=== PATIENT | male | born 1935 | race Caucasian/White ===

== ENCOUNTER 2017-07-10 18:43 | Emergency (ER) | payer MEDICARE, OTHER ==
[~2017-07-10] VITALS: Ht 177.8 cm; Wt 72.1 kg
[2017-07-10 19:21] LABS: BASOPHILS ABSOLUTE AUTO 0.02 K/mm3 (0.00-0.23); BASOPHILS PERCENT AUTO 0 % (0-2); EOSINOPHILS ABSOLUTE AUTO 0.03 K/mm3 (0.00-0.68); EOSINOPHILS PERCENT AUTO 0 % (0-6); Hemoglobin 11.2 g/dL (13.5-17.5); IMMATURE GRAN ABSOLUTE AUTO 0.04 K/mm3 (0.00-0.10); IMMATURE GRAN PERCENT AUTO 0 % (0-1); LYMPHOCYTES ABSOLUTE AUTO 0.78 K/mm3 (0.84-5.20); LYMPHOCYTES PERCENT AUTO 9 % (21-46); MONOCYTES ABSOLUTE AUTO 1.14 K/mm3 (0.16-1.47); MONOCYTES PERCENT AUTO 13 % (4-13); Mean Corpuscular HGB 31.6 pg (26.0-34.0); Mean Corpuscular Volume 99 fL (80-100); Mean Platelet Volume 9.3 fL (9.1-12.4); NEUTROPHILS ABSOLUTE AUTO 7.04 K/mm3 (1.96-9.15); NEUTROPHILS PERCENT AUTO 78 % (41-73); Platelet Count 382 K/mm3 (150-400); RDW Coefficient Variation 12.6 % (11.7-14.2); RDW Standard Deviation 45.5 fL (35.1-46.3); Red Blood Cell Count 3.54 M/mm3 (4.30-5.90); White Blood Cell Count 9.05 K/mm3 (4.00-11.30)
[2017-07-10 19:39] LABS: Alanine Aminotransfer (ALT/SGP 36 U/L (12-78); Albumin, Blood 2.2 g/dL (3.4-5.0); Albumin/Globulin Ratio 0.5 (0.8-1.8); Alk Phos 122 U/L (50-136); Anion Gap 8 mmol/L (6-16); Aspartate Aminotrans (AST/SGOT 37 U/L (12-37); Bilirubin, Total 0.4 mg/dL (0.1-1.0); Blood Urea Nitrogen 17 mg/dL (8-24); Bun/Creatinine Ratio 13.8 (12.0-20.0); CO2, Blood 27 mmol/L (21-32); Calcium, Blood 8.6 mg/dL (8.5-10.1); Chloride, Blood 104 mmol/L (98-108); Creatinine, Blood 1.23 mg/dL (0.60-1.20); Globulin, Blood 4.6 g/dL (2.2-4.0); Glomerular Filtration Rate >60 (60-); Glucose, Blood 108 mg/dL (70-99); Potassium, Blood 3.5 mmol/L (3.5-5.5); Sodium, Blood 139 mmol/L (136-145); Total Protein, Blood 6.8 g/dL (6.4-8.2)
[2017-07-10] MEDS ORDERED: IRON (20:03)
[2017-07-10] MEDS ORDERED: DIGOX125 MCG PO (20:04)
[2017-07-10] MEDS ORDERED: FURO40 PO (20:05)
[2017-07-10] MEDS ORDERED: ASPI81CH PO (20:05)
[2017-07-10] MEDS ORDERED: [UNRECOGNIZED DRUG - REMARK] (20:06)
[2017-07-10] MEDS ORDERED: Glucosamine Ch1 EAC4 PO (20:07)
[2017-07-10] MEDS ORDERED: Hair, Skin & N1 EACH PO (20:07)
[2017-07-10] MEDS ORDERED: [UNRECOGNIZED DRUG - OTHER] (20:07)
[2017-07-10] MEDS ORDERED: Ferosul325 MG PO (20:08)
[2017-07-10] MEDS ORDERED: Vitamin B-121000 MCG (20:09)
[2017-07-10] MEDS ORDERED: Advair Hfa 230-12 GM (20:09)
[2017-07-10 20:58] LABS: Source, Urine Clean Catch
[2017-07-10 20:59] LABS: Bicarbonate Venous 24.7 mmol/L (24.0-30.0); PCO2 Venous 54.9 mmHg (38-42); PO2 Venous 28.8 mmHg (38-42); pH Blood Venous 7.32 (7.34-7.37)
[2017-07-10 21:02] LABS: Appearance, Urine Clear (Clear); Bilirubin, Urine Neg (Neg); Blood, Urine 1+ (Neg); Color, Urine Yellow (P-Yellow); Glucose Qualitative, Urine Neg (Neg); Ketones, Urine Neg (Neg); Leukocyte Esterase, Urine Neg (Neg); Nitrite, Urine Neg (Neg); Protein, Urine 3+ (Neg); Urobilinogen, Urine 1+ (Normal)
[2017-07-10 21:10] LABS: Bacteria Not Seen /hpf; Red Blood Cells, Urine 0-2 /hpf (0-2); Squamous Epithelial Cells Rare /hpf (Few); White Blood Cells, Urine Not Seen /hpf (0-5)
[2017-07-10 22:17] LABS: PCO2 Arterial 38.1 mmHg (35-45); PO2 Arterial 65.5 mmHg (80-100)
[2017-07-10 22:21] LABS: Influenza A Negative (NEGATIVE); Influenza B Negative (NEGATIVE)
[2017-07-10] MEDS ORDERED: Zithromax250 MG PO (22:43)
[2017-07-10 23:18] LABS: Digoxin (Lanoxin) 0.43 ug/mL (0.80-2.00)
== END 2017-07-10 23:18 | disposition home or self-care (01) ==
LOC: ER 18:43
PROVIDERS: Emergency Medicine; Physician Assistant
DX: J18.9 Pneumonia, unspecified organism (principal); I48.91 Unspecified atrial fibrillation; Z79.82 Long term (current) use of aspirin; Z79.899 Other long term (current) drug therapy; F17.210 Nicotine dependence, cigarettes, uncomplicated
CPT/HCPCS: 36415; 36600; 70450; 71046; 80053; 80162; 81001; 82803; 83880; 84484; 85025; 87086; 87804; 93005; 93010; 99284; J7030

== ENCOUNTER → 2018-10-08 | Outpatient (CLI) | payer MEDICARE, OTHER ==
[~2018-10-08] MED LIST: ASPI81CH PO; Advair Hfa 230-12 GM; DIGOX125 MCG PO; FURO40 PO; Ferosul325 MG PO; Glucosamine Ch1 EAC4 PO; Hair, Skin & N1 EACH PO; IRON; Vitamin B-121000 MCG; Zithromax250 MG PO; [UNRECOGNIZED DRUG - OTHER]; [UNRECOGNIZED DRUG - REMARK]
== END | disposition home or self-care (01) ==
LOC: LAB SHORT 18:23 → LAB 18:23
DX: L03.90 Cellulitis, unspecified (principal)
CPT/HCPCS: 87070; 87075; 87077; 87186; 87205

== ENCOUNTER → 2018-10-13 | Outpatient (CLI) | payer MEDICARE, OTHER | END | disposition home or self-care (01) | LOC: LAB 12:30 → LAB SHORT 12:30 | DX: L03.317 Cellulitis of buttock (principal) | CPT/HCPCS: 87070; 87075; 87077; 87186; 87205 ==

== ENCOUNTER → 2019-05-12 | Outpatient (CLI) | payer MEDICARE, OTHER ==
[2019-05-13 14:29] LABS: Stool Occult Bld Immuno 1 Positive (NEGATIVE)
== END | disposition home or self-care (01) ==
LOC: LAB 15:30 → LAB SHORT 15:30 → LAB FUT 05-11 14:40
PROVIDERS: Nurse Practitioner Family
DX: Z12.11 Encounter for screening for malignant neoplasm of colon (principal)
CPT/HCPCS: G0328

== ENCOUNTER 2022-03-16 14:56 | Emergency (ER) | payer MEDICARE, OTHER ==
[~2022-03-16] VITALS: Ht 172.7 cm; Wt 62.6 kg
[2022-03-16] MEDS ORDERED: ELIQUIS2.5 M1 PO (17:52)
[2022-03-16] MEDS ORDERED: Norco 5-325 Ta1 EACH PO (18:19)
== END 2022-03-16 18:30 | disposition home or self-care (01) ==
LOC: ER 14:56
DX: M25.551 Pain in right hip (principal); M25.552 Pain in left hip; F17.210 Nicotine dependence, cigarettes, uncomplicated; Z79.82 Long term (current) use of aspirin; Z79.899 Other long term (current) drug therapy
CPT/HCPCS: 73502

== ENCOUNTER 2022-06-01 20:52 | Observation (INO) | payer MEDICARE, OTHER ==
[~2022-06-01 20:52] MED LIST changes: +DIGOX125 MC1 PO; -DIGOX125 MCG PO; +ELIQUIS2.5 M1 PO; +FURO20 PO; -FURO40 PO; +GLUCOSAMINE-CH1 EAC7 PO; -Glucosamine Ch1 EAC4 PO; +Norco 5-325 Ta1 EACH PO
[2022-06-01 21:09] LABS: BASOPHILS ABSOLUTE AUTO 0.03 K/mm3 (0.00-0.23); BASOPHILS PERCENT AUTO 1 % (0-2); EOSINOPHILS ABSOLUTE AUTO 0.01 K/mm3 (0.00-0.68); EOSINOPHILS PERCENT AUTO 0 % (0-6); Hemoglobin 7.1 g/dL (13.5-17.5); IMMATURE GRAN ABSOLUTE AUTO 0.02 K/mm3 (0.00-0.10); IMMATURE GRAN PERCENT AUTO 0 % (0-1); LYMPHOCYTES ABSOLUTE AUTO 0.91 K/mm3 (0.84-5.20); LYMPHOCYTES PERCENT AUTO 15 % (21-46); MONOCYTES PERCENT AUTO 8 % (4-13); Mean Corpuscular HGB 27.8 pg (26.0-34.0); Mean Corpuscular HGB Conc 29.6 g/dL (31.5-36.5); Mean Corpuscular Volume 94 fL (80-100); Mean Platelet Volume 8.6 fL (9.1-12.4); NEUTROPHILS ABSOLUTE AUTO 4.76 K/mm3 (1.96-9.15); NEUTROPHILS PERCENT AUTO 76 % (41-73); Platelet Count 487 K/mm3 (150-400); RDW Coefficient Variation 17.2 % (11.7-14.2); RDW Standard Deviation 59.7 fL (35.1-46.3); Red Blood Cell Count 2.55 M/mm3 (4.30-5.90); White Blood Cell Count 6.23 K/mm3 (4.00-11.30)
[2022-06-01 21:41] LABS: Alanine Aminotransfer (ALT/SGP 14 U/L (12-78); Albumin, Blood 2.1 g/dL (3.4-5.0); Albumin/Globulin Ratio 0.4 (0.8-1.8); Alk Phos 171 U/L (50-136); Anion Gap 4 mmol/L (6-16); Aspartate Aminotrans (AST/SGOT 20 U/L (12-37); Bilirubin, Total 0.3 mg/dL (0.1-1.0); Blood Urea Nitrogen 17 mg/dL (8-24); Bun/Creatinine Ratio 18.7 (12.0-20.0); CO2, Blood 29 mmol/L (21-32); Calcium, Blood 10.4 mg/dL (8.5-10.1); Chloride, Blood 106 mmol/L (98-108); Creatinine, Blood 0.91 mg/dL (0.60-1.20); Globulin, Blood 4.7 g/dL (2.2-4.0); Glomerular Filtration Rate 83 (60-); Glucose, Blood 101 mg/dL (70-99); Sodium, Blood 139 mmol/L (136-145); Total Protein, Blood 6.8 g/dL (6.4-8.2)
[2022-06-02 05:02] LABS: Source, Urine Straight Cath
[2022-06-02 05:16] LABS: Bilirubin, Urine Neg (Neg); Blood, Urine Neg (Neg); Glucose Qualitative, Urine Neg (Neg); Ketones, Urine Neg (Neg); Leukocyte Esterase, Urine Neg (Neg); Nitrite, Urine Neg (Neg); Protein, Urine 2+ (Neg); Urobilinogen, Urine NORM (Normal)
[2022-06-02 05:21] LABS: Appearance, Urine Clear (Clear); Color, Urine Yellow (P-Yellow)
[2022-06-02 05:22] LABS: Bacteria Not Seen /hpf; Red Blood Cells, Urine Not Seen /hpf (0-2); Squamous Epithelial Cells Not Seen /hpf (Few); White Blood Cells, Urine 0-2 /hpf (0-5)
--- NOTE | 2022-06-02 13:28 | NUR ---
Upon returning to office from PCU, received VM left earlier today regarding pt in ED. Pt's family has just arrived, and are wanting to discuss options, possibly hospice. I called primary RN Richard, let him know I'm now free to assist, and will meet with pt and family after a quick review of pt's chart.
--- NOTE | 2022-06-02 14:32 | NUR ---
Met with pt, along with his s/o Hazel and son Nemesio. Pt was diagnosed with metastatic lung cancer on 05/22/22. He was prescribed 12mcg Fentanyl patches for related pain, but per , has not utilized the medication out of fear of "fentanyl overdose", as states they hear about frequently on the news. Pt appears frail, cachectic, and notably confused. He is pleasant. C/O bilat arms, shoulders, hip and leg pain, and winces with any movement. Pt does speak clearly, but sometimes uses non-sensical phrasing. Per s/o Marisol, pt has been continuing to decline daily. He is no longer eating, and must be coaxed into drinking anything more than occasional sips, per family. He is no longer ambulatory due to increased weakness. After a discussion with family, they have elected hospice care, as they state they "know he's dying". Both s/o and son are tearful. They initially stated they can't take him home, asked why he can't just "stay in the hospital"? Gently explained the hospital setting is for acute illness and injuries. We also had a conversation about the services provided by hospice. Son Nemesio does state he thinks between he and pt's s/o, they can manage. Pt states he "wants to go home". Family and pt are agreeable to comfort care now, and discharge on hospice when hospice is available. Family does not have a preference, so placed call to both [facility] and [facility]. Received return call from intake nurse at [facility], who state they are able to admit pt tomorrow.
--- NOTE | 2022-06-02 23:34 | NUR ---
ADMISSION NOTE A&O TO SELF. PATIENT APPEARS TO BE SLEEPING COMFORTABLY. PATIENT IS ON COMFORT CARE. MORPHINE AND ATIVAN ADMINISTERED PRIOR TO TRANSFER. NO ACUTE DISTRESS NOTED. THIS RN WILL CONTINUE TO CLOSELY MONITOR.
--- NOTE | 2022-06-03 04:19 | NUR ---
STOCK WORKER AND DELIVERER SUMMARY NO ACUTE EVENTS THROUGHOUT THE NIGHT. PATIENT ADMITS WITH COMFORT CARE ORDERS. MORPHINE AND ATIVAN ADMINISTERED IN THE ED PRIOR TO TRANSFER. A&OX TO SELF BUT UNABLE TO ANSWER FURTHER QUESTIONS DUE TO SOMNOLENCE. PATIENT APPEARED TO BE RESTING COMFORTABLY WITHOUT SIGNS OF RESTLESSNESS OR AGITATION. THERE WERE NO ATTEMTS TO EXIT THE BED THIS SHIFT. BED LOW AND LOCKED. CALL LIGHT WITHIN REACH.THIS RN WILL CONTINUE TO CLOSELY MONITOR.
--- NOTE | 2022-06-03 14:53 | NUR ---
Spiritual care visit conducted. Several visits today. I visited patient earlier this morning and found patient doing agoninal type breathing with 30 second or so gaps. Pt did not respond to voice or touch. I provided prayer for patient and let him rest. Later I returned and his step son was present. I conducted a life review of pt. as son is very complimentary of the pt and his solid character and huge heart. I provide therapeutic listening and anticipitory grief support. I answer questions about how the process works with the body after TOD. Nemesio responds well and showed signs of being comforted. I will continue to remain available to patient and family.
[2022-06-03] MEDS ORDERED: MOBIC15 MG PO (21:27)
[2022-06-03] MEDS ORDERED: K-TAB ER20 ME1 PO (21:28)
[2022-06-03] MEDS ORDERED: FLUTICASONE-SA1 EAC9 INH (21:29)
--- NOTE | 2022-06-04 11:32 | NUR ---
Spiritual care visit conducted. Patient has rallied significantly since yesterday. He is alert and able to communicate well. He is confused from time to time in our conversation but surprisingly clear in moments as well. In telling me about his family he says, "Right or wrong, all things being said, I just love my family and everything is B___ S___." He also stated that he would love a prayer to be said for him because we all need prayer. He stared at me while I prayed and said with tears in his eyes, "That's it man. that is it." Patient appeared to benefit from spiritual care and showed signs of greater peace. I will continue to remain available to patient and fmaily.
--- NOTE | 2022-06-04 13:01 | NUR ---
Pt appears to be resting comfortably; denies pain or SOB this am. Pt has extended periods of apnea--up to a full minute. However, he continues to awaken easily and responds to verbal stimuli. Per bedside RN, pt up to C this am to urinate. Pt has declined food and fluids. Plan for return home tomorrow with hospice, as yesterday the hospice admission was cancelled due to pt appearing to be actively dying with the long periods of apnea. Has been rescheduled tomorrow with [facility].
--- NOTE | 2022-06-04 16:16 | NUR ---
Spiritual care visit conducted. Patient is resting but easily awakens to my voice. He is even more clear mentally then he was this morning and explians that he is not sure how much time he has left and is hoping he can make it home. He asks about transport and voices his concerns for Marisol being able to manage his care. I talk about the transport process and the help that has been lined up for his arrival at home. He again welcomes prayer, which I galdly supply. I think did have a confused moment at the end when he told me that he loved me. I will continue to remain available to patient and family.
--- NOTE | 2022-06-04 18:56 | NUR ---
SHIFT SUMMARY: PT RESTING IN BED MOST OF THE SHIFT. PT ASSESSED THROUGHOUT THE SHIFT FOR PAIN, ANXIETY OR ANY DISCOMFORT, PT HAD MILD S/S OF PAIN OR DISCOMFORT. PT MEDICATED X1 MORPHINE 1ML FOR DISCOMFORT POST TRANSFERING IN CHAIR FOR LINEN CHANGE. PT HAD FACIAL GRIMACING AND VERBALLY STATED HE WAS IN PAIN. PT REPOSTIONED FRQUENTLY FOR COMFORT AND TO PREVENT FURTHER SKIN BREAK DOWN. PT HAS DISCHARGE ORDERS HOME ON [facility]. PT FAMILY CONTACTED ABOUT ORDERS PLACED. PT HAD FRQUENT DISCHARGE OF GREEN MUCUS, FRQUENT WASHING OF THE FACE AND EYES COMPLETED. PT HAD MILD HALLUCINATIONS DURING THE SHIFT, PT REFUSED PAIN MEDICATION. PT IN BED RESTING WITH CALL LIGHT WITHIN REACH.
--- NOTE | 2022-06-05 10:10 | NUR ---
PT DISCHARGED FROM THE UNIT. DISCHARGE INSTRUCTIONS REVIEWED AND SENT WITH PT. PT WILL BE GOING HOME WITH HOSPICE CARE. LEFT UNIT VIA GURNEY WITH TRANSPORT.
== END 2022-06-05 10:12 | disposition hospice, home (50) ==
LOC: ER 20:52 → MEDS 06-02 01:40 → ENPENDDIS 06-04 10:31 → MEDS 06-05 10:12
PROVIDERS: Emergency Medicine; Student in an Organized Health Care Education/Training Program; ADMIT Hospitalist
DX: C34.90 Malignant neoplasm of unspecified part of unspecified bronchus or lung (principal); C79.89 Secondary malignant neoplasm of other specified sites; I48.91 Unspecified atrial fibrillation; F17.210 Nicotine dependence, cigarettes, uncomplicated; E11.9 Type 2 diabetes mellitus without complications; Z66 Do not resuscitate; Z79.899 Other long term (current) drug therapy; Z79.01 Long term (current) use of anticoagulants
CPT/HCPCS: 80053; 80162; 81001; 83880; 84484; 85025; 93005; 93010; 99285-25; A9270